=== PATIENT | male | born 1955 | race Caucasian/White ===

== ENCOUNTER 2023-06-26 17:37 | Inpatient (IN) | payer MEDICARE, SELFPAY ==
[2023-06-26] VITALS (28 sets, daily range): BP systolic 99–138; BP diastolic 56–81; PULSE 78–99; RESP 15–26; TEMP 36.5–37.2; O2SAT 94–98
--- NOTE | 2023-06-26 17:30 | RT.EKG_ITS ---
APPROVED REPORT Exam: Resting ECG Reason for Exam: dizziness Patient Location: E HR:90 bpm ECG Measurements Heart Rate 90 AXIS MN 136 P 32 QRSd 96 QRS 17 QT 381 T 31 QTc 468 Conclusion Sinus rhythm...normal P axis, V-rate 60- 99 Normal [place] Normal Electrocardiogram
--- NOTE | 2023-06-26 17:36 | W.ED.GENAD ---
Discharge Plan Disposition Patient Disposition: Admit to [facility] Condition: Good Discharge Details Clinical Impression: Left arm weakness, Left arm numbness Primary Care Provider: None,None ED Provider: Anthony Marcano General Mode of arrival: EMS. Date/Time Provider Initiated Documentation: 06/26/23 17:44. Limitations to Documentation: no limitations. Information obtained by: patient. HPI Narrative: Patient brought into ED by ambulance after a slip and fall. Patient reports being dizzy on and off this week. He is also reporting left upper extremity numbness and weakness couple of times this week which is new. 1 episode lasted a couple of hours. He did not seek treatment at that time. When he fell this afternoon he did strike the back of his head. Questionable LOC but definitely dazed and confused post fall. Denies any no neck pain. He has chronic neck and back pain. Denies any chest pain or shortness of breath. Has a chronic cough. Denies any abdominal pain or GI symptoms. Review of Systems Narrative: Per HPI Exam Narrative Exam Narrative: Const: WDWN elderly male in NAD. HEENT: NC/AT. Normal facial exam. Neck: Supple. Trachea midline. No cervical spine tenderness. Lungs: Normal respiratory effort. Lungs are clear. Cor: RRR without murmur/gallop. Good radial pulses. GI: Soft. NT/ND. Back: No spine tenderness. Neuro: A+O x 3. Normal speech, mentation. Cranial nerves II - XII grossly intact. No gross motor or sensory deficit. Ext: No C/C/E. Medical Decision Making Patient presenting to ED with complaint of slip and fall, striking his head with questionable LOC. However, patient reporting 2 episodes of left upper extremity numbness and weakness that has occurred this week. Has never had this previously. Denied any lower extremity symptoms. Denies any chest pain or shortness of breath. Cervical spine is cleared clinically status post fall this afternoon. He will need CT head but given his episodes of unilateral neurologic symptoms will obtain CTA of head and neck, EKG, laboratory studies. Patient's EKG is sinus rhythm with no acute ST changes, essentially normal. Laboratory studies unremarkable. Mild anemia on CBC, mildly elevated BUN but normal creatinine. CT head is negative for bleed or fracture. CTA of head and neck negative for LVO or significant stenosis. Given the patient's history of hypertension with 2 episodes of left upper extremity weakness and numbness I did recommend admission for MRI and ECHO which patient is agreeable to. He is given 324 of aspirin. Discussed with hospitalist. Lab Data Lab results reviewed: Yes I reviewed the patient's lab results. ECG Data Attestation: I personally reviewed and interpreted this ECG (s) as follows: Prior ECG tracings: not available for review Interpretation: See EKG Quality:SDOH Health Related Social Needs: No Data to Display PFSH All Active Problems (Updated 06/26/23 @ 21:21 by Anthony Marcano MD) Left arm numbness (Acute) Left arm weakness (Acute) Medical History Degenerative joint disease of spine Asthma HTN (hypertension) Social History Smoking risk assessment performed?: No Alcohol Intake: current Alcohol Intake frequency: a few times a week Alcohol type: beer Substance use type: does not use Housing: homeless
--- NOTE | 2023-06-26 17:57 | DI.CT_ITS ---
Exam(s) CT BRAIN NECK CTA EXAM: CT BRAIN NECK CTA CLINICAL HISTORY: LUE numbness/weakness x2 this week. TECHNIQUE: Imaging Protocol: Axial CT angiography was performed with multi-slice acquisition and mu lti-planar and/or 3D reconstructions. CONTRAST MATERIAL: Intravenous: Omnipaque 350 Contrast volume:structured data in ml COMPARISON: No exams were available for comparison FINDINGS: CTA Neck W: Aortic arch anatomy: The aortic arch anatomy is conventional and there is no significant stenosis at the origin of the great vessels off of the aortic arch. No intimal flap evident. Anterior circulation: Both common carotid arteries ascend with normal luminal diameters. At the level the carotid bulbs and proximal internal carotid arteries there is minimal plaque without hemodynamically significant stenosis evident. Posterior circulation: Both vertebral arteries originate in conventional fashion off of the subclavian arteries and there is no obvious stenosis at the origin of the vertebral arteries. Both vertebral arteries exhibit normal luminal diameters within the foramen transversarium. Both vertebral arteries contribute to the formation of the basilar artery at the skull base. CTA Brain W: Anterior circulation: Both internal carotid arteries are patent in the skull base-carotid canals as well as within the cave rnous sinuses. The supraclinoid aspects of the ICAs are patent. Both A1 segments are patent as are the anterior cer ebral arteries and there is no evidence of aneurysm at the level of the anterior communicating artery . Both middle cerebral arteries are patent with no evidence of significant stenosis nor intraluminal th rombus. There also no aneurysms of these vessels. Posterior circulation: The basilar artery ascends in the midline. Distally it gives off patent bilateral superior cerebella r arteries. Above this level the basilar artery terminates as patent bilateral posterior cerebral arteries. There is a posterior communicating artery on the right side of the [id number] feeding the right posterior cerebral artery. There is no evidence of aneurysm at the tip of the basilar artery nor elsewhere in the gossfy-[id number]-Diwr is. On the axial images there is a subtle suggestion of a possible aneurysm at the origin of the lef t middle cerebral artery. This, however, is not evident on the sagittal and coronal reconstructed im ages. CT BRAIN: There is no evidence of intracranial hemorrhage, mass effect, or shift of midline structures. There are no extra-axial fluid collections. Ventricles are not enlarged or shifted. There are no ring enh ancing lesions in the brain and no abnormal meningeal enhancement. IMPRESSION: 1. Patent carotid arteries in the neck. No hemodynamically significant stenosis. 2. Patent vertebral arteries. 3. Patent intracranial arteries. 4. No acute intracranial findings. No ring enhancing lesions in the brain and no abnormal meningeal enhancement. RADIATION DOSE DELIVERED: Total DLP DATA REPOSITORY: All CT scans at this facility are submitted to the National Radiology Data Registry (NRDR) Dose Index Registry (DIR) with the [employer] (ACR). RADIATION OPTIMIZATION: All CT scans at this facility use at least one of these dose optimization te chniques: automated exposure control; mA and/or kV adjustment per patient size (includes targeted exa ms where dose is matched to clinical indication); or iterative reconstruction.
[2023-06-26 18:17] LABS: Abs Immature Grans 0.01 10^3/uL (0.0-0.06); Absolute Basophil Count 0.08 10^3/uL (0.0-0.2); Absolute Eosinophil Count 0.03 10^3/uL (0.0-0.7); Absolute Lymphocyte Count 1.56 10^3/uL (1.2-3.4); Absolute Neutrophil Count 3.47 10^3/uL (1.2-6.7); Basophils % 1.4; Eosinophils % 0.5; HCT 38.6 % (40.0-50.0); HGB 12.6 g/dL (13.5-17.5); Immature Grans % 0.2; Lymphocytes % 27.6; MCHC 32.6 % (32.0-36.0); MCV 92 fL (80-95); MPV 8.9 fL (8.0-11.0); Monocytes % 8.8; Neutrophils % 61.5; Platelet Count 264 10^3/uL (130-400); RDW 13.4 % (11.8-14.1); RDW-SD 45.3 fL; WBC 5.65 10^3/uL (4.4-10.8)
[2023-06-26] MEDS: Normal Saline 1,000 ML 1000 ML IV (18:17)
[2023-06-26 18:31] LABS: ALT 23 U/L (16-63); AST 21 U/L (15-37); Albumin 3.1 g/dL (3.4-5.0); Alkaline Phosphatase 57 U/L (46-116); BUN 25 mg/dL (7-18); Bilirubin, Total 0.2 mg/dL (0.2-1.0); Calcium 8.2 mg/dL (8.5-10.1); Chloride 108 mmol/L (98-107); Estimated GFR 81.47 (mL/min/1.73m2); Glucose 87 mg/dL (74-106); Magnesium 2.2 mg/dL (1.8-2.4); Potassium 3.8 mmol/L (3.5-5.1); Sodium 143 mmol/L (136-145); Total Protein 6.7 g/dL (6.4-8.2)
[2023-06-26] MEDS: Omnipaque 350 MG/ML 100 ML BTL IJ (19:10)
[2023-06-26] MEDS: Normal Saline - Diluent 50 ML VIAL IJ (19:12)
--- NOTE | 2023-06-26 21:05 | DI.VRAD_ITS ---
PROCEDURE INFORMATION: Exam: CT Head Without Contrast Exam date and time: 06/26/2023 7:16 PM Age: 67 years old Clinical indication: Lue numbness/weakness x2 this week TECHNIQUE: Imaging protocol: Computed tomography of the head without contrast. COMPARISON: No relevant prior studies available. FINDINGS: Brain: There is no acute intracranial hemorrhage, mass effect or midline shift. There is no large acute territorial cerebral infarct. Bilateral basal ganglia calcifications are noted. Cerebral ventricles: No ventriculomegaly. Paranasal sinuses: Visualized sinuses are unremarkable. No fluid levels. Mastoid air cells: Visualized mastoid air cells are well aerated. Bones/joints: Unremarkable. No acute fracture. Soft tissues: Unremarkable. IMPRESSION: No acute intracranial hemorrhage, mass effect or midline shift. PROCEDURE INFORMATION: Exam: CTA Head With Contrast, Arteriography Exam date and time: 06/26/2023 7:16 PM Age: 67 years old Clinical indication: Other: Lue numbness/weakness x2 this week TECHNIQUE: Imaging protocol: Computed tomographic angiography of the head with contrast. Exam focused on the arteries. 3D rendering (Not supervised by radiologist): MIP and/or 3D reconstructed images were created by the technologist. Contrast material: 350; Contrast volume: 85 ml; Contrast route: INTRAVENOUS (IV); COMPARISON: No relevant prior studies available. FINDINGS: ANTERIOR CIRCULATION: Right internal carotid artery: Intracranial segment is patent with no significant stenosis. No aneurysm. Right middle cerebral artery: No occlusion or significant stenosis. No aneurysm. Right anterior cerebral artery: No occlusion or significant stenosis. No aneurysm. Left internal carotid artery: Intracranial segment is patent with no significant stenosis. No aneurysm. Left middle cerebral artery: No occlusion or significant stenosis. No aneurysm. Left anterior cerebral artery: No occlusion or significant stenosis. No aneurysm. POSTERIOR CIRCULATION: Right vertebral artery: No occlusion or significant stenosis. No aneurysm. Left vertebral artery: No occlusion or significant stenosis. No aneurysm. Basilar artery: No occlusion or significant stenosis. No aneurysm. Right posterior cerebral artery: No occlusion or significant stenosis. No aneurysm. Left posterior cerebral artery: No occlusion or significant stenosis. No aneurysm. Brain: No definite mass, mass effect, or midline shift. Cerebral ventricles: No ventriculomegaly. Bones/joints: Unremarkable. No acute fracture. Soft tissues: Unremarkable. IMPRESSION: No large vessel stenosis or occlusion. PROCEDURE INFORMATION: Exam: CTA Neck With Contrast Exam date and time: 06/26/2023 7:16 PM Age: 67 years old Clinical indication: Lue numbness/weakness x2 this week TECHNIQUE: Imaging protocol: Computed tomographic angiography of the neck with contrast. Exam focused on the cervical segments of the vasculature. 3D rendering (Not supervised by radiologist): MIP and/or 3D reconstructed images were created by the technologist. Contrast material: 350; Contrast volume: 85 ml; Contrast route: INTRAVENOUS (IV); COMPARISON: No relevant prior studies available. FINDINGS: Right common carotid artery: No stenosis. No dissection or occlusion. Right internal carotid artery: No stenosis of the extracranial segment. No dissection or occlusion. Right external carotid artery: No occlusion or stenosis of the origin. Left common carotid artery: No stenosis. No dissection or occlusion. Left internal carotid artery: No stenosis of the extracranial segment. No dissection or occlusion. Left external carotid artery: No occlusion or stenosis of the origin. Right vertebral artery: No stenosis. No dissection or occlusion. Left vertebral artery: No stenosis. No dissection or occlusion. Soft tissues: Normal. No significant soft tissue swelling. Bones/joints: No acute fracture. IMPRESSION: No stenosis or occlusion. REFERENCES: NASCET CRITERIA. The degree of stenosis in the cervical segment of the internal carotid artery is based on NASCET criteria. Normal is no stenosis. Mild is less than 50% stenosis. Moderate is 50-69% stenosis. Severe is 70% to 99% stenosis. Total occlusion is no detectable patent lumen. Dictated and Authenticated by: Aundrea Gutierrez MD. Ordering:LOUISE Cruz MD
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
[2023-06-26] MEDS: Aspirin 81 MG CHEW 324 MG CH (22:09)
[2023-06-26 23:51] LABS: TSH (W/Ref FT4) 1.17 uIU/mL (0.36-3.74)
[2023-06-27] VITALS (8 sets, daily range): BP systolic 137–172; BP diastolic 79–96; PULSE 74–87; RESP 14–18; TEMP 36.3–37; O2SAT 95–98
[2023-06-27 06:41] LABS: HCT 40.2 % (40.0-50.0); HGB 13.6 g/dL (13.5-17.5); MCH 30.7 pg (27.0-33.0); MCHC 33.8 % (32.0-36.0); MCV 91 fL (80-95); MPV 9.1 fL (8.0-11.0); Platelet Count 257 10^3/uL (130-400); RBC 4.43 10^6/uL (4.36-5.78); RDW 13.3 % (11.8-14.1); RDW-SD 44.4 fL; WBC 7.22 10^3/uL (4.4-10.8)
[2023-06-27 07:08] LABS: ALT 18 U/L (16-63); AST 20 U/L (15-37); Albumin 3.2 g/dL (3.4-5.0); Alkaline Phosphatase 56 U/L (46-116); Anion Gap 10.4 mmol/L (3-11); BUN 19 mg/dL (7-18); Bilirubin, Total 0.4 mg/dL (0.2-1.0); CO2 22.6 mmol/L (21.0-32.0); CREATININE 0.7 mg/dL (0.70-1.30); Calcium 8.5 mg/dL (8.5-10.1); Calculated LDL 79 mg/dL (<100); Chloride 107 mmol/L (98-107); Cholesterol 165 mg/dL (<200); Estimated GFR 99.74 (mL/min/1.73m2); Glucose 83 mg/dL (74-106); HDL Cholesterol 71 mg/dL (40-60); Potassium 4.4 mmol/L (3.5-5.1); Sodium 140 mmol/L (136-145); Total Protein 6.7 g/dL (6.4-8.2); Triglyceride 76 mg/dL (<150)
--- NOTE | 2023-06-27 08:00 | DI.MRI_ITS ---
Exam(s) MR BRAIN WO EXAM: MR BRAIN WO CLINICAL HISTORY: TIA with left upper extremity weakness intermitten TECHNIQUE: Multiplanar multisequence MRI of the brain was performed. COMPARISON: CT CT BRAIN NECK CTA from 06/26/2023 FINDINGS: CEREBRAL PARENCHYMA: There is no evidence of intracranial hemorrhage, mass effect, or shift of midline structures. There are no extra-axial fluid collections. Ventricles are not enlarged or shifted. There is no significant focal signal abnormality in the cerebellar hemispheres nor within the ximena, m idbrain, and thalami. There are multiple small nonspecific foci of FLAIR bright signal abnormality in the bilateral cortica l white matter, not associated with hemorrhage, surrounding edema, nor restricted diffusion to sugges t acute ischemic event. No evidence of microhemorrhages on susceptibility weighted imaging PITUITARY GLAND: No mass nor parasellar abnormality. No obvious abnormality in the cavernous sinuses. FLOW VOIDS: The expected flow void are noted. No evidence of obvious aneurysm nor obvious vascular ma lformation. Incidentally noted is a right posterior communicating artery feeding the right posterior cerebral artery. The left posterior cerebral artery originates in conventional fashion off of the ti p of the basilar artery. PARANASAL SINUSES: The visualized paranasal sinuses appear unremarkable. No obvious finding ORBITS: No obvious findings. IMPRESSION: No significant acute intracranial findings on this noninfused MRI scan of the brain. Chronic small-vessel white matter ischemic changes. No evidence of restricted diffusion to suggest a cute ischemic event. DATA REPOSITORY:
--- NOTE | 2023-06-27 09:38 | INITIAL_ITS ---
Date of service: 06/27/23 Care Management Initial Assmt Initial Assessment REASON FOR HOSPITALIZATION:: TIA HTN Fall Homelessness PREVIOUS FUNCTIONAL STATUS/SOCIAL/FAMILY SUPPORTS:: Rebel is from [place], currently traveling. He has a [place] mailing address. He says he has an ex in [place] he can not stay with and an ex girlfriend in [place] who has medical issues so can not stay there either. He says he has some siblings, however, does not stay in contact with them. He says he is pretty lonely and shed some tears in saying this. CURRENT FUNCTIONAL STATUS:: Rebel was sitting up in a chair when meeting with CM engaging in conversation. Rebel explained he has been homeless since 2018 staying in various places between [place], [place], [place]. Rebel described having a sled he has a lot of his belongings in and [place] but would be willing to go to the local motel or prison here in [facility]. He said he has used numerous motels and shelters over the last few years since leaving [place]. 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 CM provided [employer] housing line number for housing services when ready for discharge. He is not interested in state food services. CM completed IMM form with Pt. ADVANCE DIRECTIVES:: GALILEO Yanes Has patient been provided with info about the portal/API?: Yes Did the patient sign up for the portal?: No CODE STATUS:: Full Code INSURANCE COVERAGE / FINANCIAL ISSUES:: [employer] Medicare Replacement PRIMARY CARE PHYSICIAN:: Will offer T-Doc f/u PATIENT/FAMILY EDUCATION NEEDS:: Review discharge instructions and limitations, discussion of self care needs including Ask Me Three ANTICIPATED BARRIERS TO DISCHARGE:: Homelessness TRANSPORTATION:: Via private vehicle PLAN:: Rebel will transport home once medically cleared via private vehicle. CM will continue to follow. PFSH All Active Problems (Updated 06/27/23 @ 15:33 by Maya Burnett APRN) Discharge planning issues (Acute) On deep vein thrombosis (DVT) prophylaxis (Acute) Fall (Acute) TIA (transient ischemic attack) (Acute) Left arm numbness (Acute) Left arm weakness (Acute) Medical History Degenerative joint disease of spine Asthma HTN (hypertension) Social History Smoking risk assessment performed?: No Alcohol Intake: current Alcohol Intake frequency: a few times a week Alcohol type: beer Substance use type: does not use Housing: homeless SDOH(Care Management) Screening Will the Patient Participate in the Screening?: Yes Do you worry about having a steady place to live?: yes Problems where you live: pests such as bugs, ants or mice, mold, lack of heat, oven or stove not working, water leaks, unsafe steven/stairs, inadequate lighting and other In the past 12 months, have you had to go without electric, gas, oil or water in your home?: yes Have you or anyone in your house had to go without enough food to eat?: yes Has lack of transportation kept you from medical appointments or from doing things needed for daily living?: yes Has anyone in your support network made you feel unsafe for any reason?: yes Social Determinants of Health Comments(SDOH Details): homeless lives in [facility] Health Related Social Needs Health related social needs: inadequate housing(Z59.1), housing instability, housed, with risk of homelessness(Z59.811), food insecurity(Z59.41), transportation insecurity(Z59.82), material hardship(utilities)(Z59.87) and problem related to primary support group(Z63.9)
[2023-06-27] MEDS: Aspirin 81 MG CHEW PO (09:49)
[2023-06-27] MEDS: Normal Saline Flush 10 ML SYR IVP ×2 (09:50→19:58)
--- NOTE | 2023-06-27 10:30 | DI.US_ITS ---
APPROVED REPORT EXAM: Comprehensive 2D, Doppler, and color-flow Echocardiogram Patient Location: In-Patient Room/Bed: [address] Machine Operator: Marek Cruz RDCS (AE) Indications: TIA with intermittent left arm weakness Echo Enhancing Agent Indication: Rule out Shunt Agent(s) / Amount(s) Used: Agitated Saline 30.0 cc Comments: Contrast study was performed with 3 IV injections of 10ccs of agitated normal saline, at [facility], with cough and post valsalva maneuver. Negative contrast study for shunt flow. Conclusion Normal left ventricular wall thickness and chamber size. Ejection fraction is 50%. There are no seg mental wall motion abnormalities Normal right ventricular size and function Left atrium is mildly enlarged. Right atrial size is normal No intracardiac shunting is identified with injection of agitated saline There are no structural or hemodynamically significant valvular abnormalities Wall motion Left Ventricle The left ventricle is normal size. Left ventricular systolic function is borderline. There is normal left ventricular wall thickness. No segmental wall motion abnormalities There is no ventricular septa l defect visualized. LVEF is 50%. Right Ventricle The right ventricle is normal size. The right ventricular systolic function is normal. Atria Left atrium is mildly dilated. The right atrium size is normal. The interatrial septum is intact with no evidence for an atrial septal defect. Saline bubble contrast intravenous injection does not demon strate PFO. Aortic Valve The aortic valve is normal in structure. Aortic valve is trileaflet. There is no aortic valvular sten osis. No aortic regurgitation is present. Mitral Valve The mitral valve is normal in structure. No evidence of mitral valve stenosis. Trace mitral regurgita tion. Tricuspid Valve The tricuspid valve is normal in structure. There is no tricuspid valve stenosis. Trace tricuspid reg urgitation. Unable to assess PA pressure. Pulmonic Valve The pulmonary valve is normal in structure. There is no pulmonic valvular stenosis. There is no pulmo dominique valvular regurgitation. Great Vessels The aortic root is normal in size. The ascending aorta is normal in size. Aortic arch is normal in ca liber. IVC is normal in size and collapses >50% with inspiration. Pericardium There is no pericardial effusion. 2D Dimensions IVSD d PLAX 0.72 cm M: 0.6-1.2 Ao Root d 2.71 cm M: 3.1 - 3.7 LVPW d PLAX 0.72 cm M: 0.6 - 1.2 Ao Asc Diam d 3.10 cm M: 2.6 - 3.4 LVID d PLAX 5.54 cm M: 4.2 - 5.8 LVDs 4.22 cm M: 2.5 - 4.0 LV EF Teichholz 47.0 % FS 23.82 % LV EDV (Teich) 149.8 mL LV ESV (Teich) 79.5 mL Stroke Vol Index (Teich) 41.90 M-Mode TAPSE 2.52 cm (M/F) >1.7 Auto EF LV EDV A4C 136.1 mL LV EDV A2C 126.8 mL LV EDV BP 133.4 mL LV ESV A4C 75.3 mL LV ESV A2C 67.2 mL LV ESV BP 71.1 mL LVEF(%) A4C 44.7 % LVEF(%) A2C 47.0 % LVEF(%) BP 46.7 % LV SV A4C 60.8 ml LV SV A2C 59.5 ml LV SV BP 62.3 ml LV CO A4C 4.6 L/min LV CO A2C 4.8 L/min LV CO BP 4.7 L/min HR A4C 75.95 BPM HR A2C 80.18 BPM LV EDV Index (BP) LA Volume LA Length A4C 4.6 cm LA Length A2C 3.7 cm LA Area A4C s 14.06 cm2 LA Area A2C s 13.22 cm2 LA Vol A4C A-L 36.65 mL LA Vol A2C A-L 40.49 mL LA Vol Biplane A-L 43.0 mL LA Vol/BSA A4C A-L LA Vol/BSA A2C A-L LA Vol/BSA BP A-L 25.6 mL/m2 LA Vol A4C MOD 34.9 mL LA Vol A2C MOD 37.8 mL LA Vol BP MOD 39.7 mL RA Volume RA Area A4C 12.1 cm2 RA ESV A4C (A-L) 27.2mL RA Vol/BSA A4C A-L RA Length A4C 4.6 cm RA ESV A4C (MOD) 25.2mL LV Diastology MV E' medial 0.067 (>0.07 m/s) MV E Vmax 0.57 (0.4-1.3 m/s) MV E/E' MED 8.48 (<14) MV A Vmax 0.75 (0.4-1.3 m/s) MV E' lateral 0.046 (>0.1 m/s) E/A Ratio 0.8 MV E/E' LAT 12.32 (<14) MV E' Average 0.056 m/s MV E/E'(average) 10.05 Aortic Valve AoV Vmax 0.84 m/s LVOT Vmax 0.65 m/s AoV Peak Grad 2.8 mmHg LVOT Peak Grad 1.7 mmHg AoV Area (Vmax) 2.13 cm2 LVOT VTI 0.139 m AoV VTI 0.180 m LVOT Mean Grad 0.9 mmHg AoV Mean Frederick. 0.62 m/s LVOT SV 37.84 mL AoV Mean Grad 1.8 mmHg LVOT Diam s 1.85 cm AoV Area (VTI) 2.10 cm2 Velocity Ratio 0.77 Mitral Valve MV DT 211 (160-240 msec) Pulmonary Valve PV Vmax 0.86 (0.5-1.5 m/s) RVOT Vmax 0.47 m/s PV Peak Grad 3.0 mmHg RVOT Peak Gr. 0.9 mmHg PV Mean Frederick 0.58 m/s RVOT VTI 0.092 m PV Mean Grad 1.5 mmHg RVOT Mean Gr. 0.5 mmHg
[2023-06-27] MEDS: Hydrocortisone 1% CR 30 GM TUBE TP ×3 (11:30→19:58)
--- NOTE | 2023-06-27 14:51 | PHA.REVIEW2 ---
Pharmacy Admission Review Admission Clinical Review Admission Pharmacy Review: Fall (Acute) TIA (transient ischemic attack) (Acute) PCN Allergy (Unknown, Uncoded 06/26/23 22:20) Other (See Comment) Resuscitation Status Full Code Height 5 ft 6 in Weight 68.1 kg Pharmacy Admission Review Renal Dosing Renal Dosing: BUN 19 mg/dL (7-18) H 06/27/23 06:30 Creatinine 0.7 mg/dL (0.70-1.30) 06/27/23 06:30 Medications needing adjustments: Reviewed (CrCl 67.1 mL/min) Anticoagulation Anticoagulation: Hgb 13.6 g/dL (13.5-17.5) 06/27/23 06:30 Hct 40.2 % (40.0-50.0) 06/27/23 06:30 Plt Count 257 10^3/uL (130-400) 06/27/23 06:30 Creatinine 0.7 mg/dL (0.70-1.30) 06/27/23 06:30 DVT Prophylaxis: Reviewed (None at this time, possibly due to recent fall. Provider put in order that that medical prophylaxis is contraindicated) Relevant Labs Relevant Labs: Sodium 140 mmol/L (136-145) 06/27/23 06:30 Potassium 4.4 mmol/L (3.5-5.1) 06/27/23 06:30 Chloride 107 mmol/L (98-107) 06/27/23 06:30 Magnesium 2.0 mg/dL (1.8-2.4) 06/27/23 06:30 Electrolytes, C-Reactive P, ESR: Reviewed (BUN decreased from 25 to 19, Hgb increased from 12.6 to 13.6) Cardiac Review Cardiac Review: Blood Pressure 172/88 1123 Blood Pressure 170/96 0729 Blood Pressure 144/80 0421 BP, HR, EF%: Reviewed (BP 172/88 and HR WNL) QTc Review QTc: Reviewed (468 from 06/26/23) IV to PO Switch IV Medications: Reviewed Home Meds Home Med List reviewed: Reviewed Relevent Home Meds Not ordered & why?: Ibuprofen (PRN) Current Meds Current Medication Order Review: Reviewed
--- NOTE | 2023-06-27 14:59 | PGE_ITS ---
Date of Service Date of service: 06/27/23 Time of Service: 13:00 Assessment and Plan Assessment and plan (1) TIA (transient ischemic attack): Start date: 06/26/23 Status: Acute Assessment and plan: -TIA : resolved -Permissive hypertension: SBP 160, lisinopril for SBP > 150 ( 178 now) -On lipitor -On ASA 81 mg daily -Echo with bubble: LVEF 50%, no intra-cardiac shunting -Head and Neck CTA: 1.Patent carotid arteries in the neck. No hemodynamically significant stenosis. 2. Patent vertebral arteries. 3. Patent intracranial arteries. 4. No acute intracranial findings. No ring enhancing lesions in the brain and no abnormal meningeal enhancement. -Provide education: BFAST acronym (2) Fall: Start date: 06/26/23 Status: Acute Assessment and plan: Considered PT for fall safety but patient is ambulating independently in halls with steady and equal gait without assistive device On telemetry: NSR Qualifiers: Encounter type: initial encounter Qualified Code(s): W19.XXXA - Unspecified fall, initial encounter (3) HTN (hypertension): Assessment and plan: Permissive hypertension for SBP 160 then to normal w/i 24-48 hours: lisinopril with parameters ordered SBP 177-178 Qualifiers: Hypertension type: primary hypertension Qualified Code(s): I10 - E ssential (primary) hypertension (4) On deep vein thrombosis (DVT) prophylaxis: Status: Acute Assessment and plan: Patient with TIA on IPC, no restricted mobility thus will no start lovenox on this patient -SCD's (5) Discharge planning issues: Status: Acute Assessment and plan: Homelessness; -Conferring with CM for disposition Subjective Subjective Patient reports: no new complaints, feels better, tolerating liquids well, tolerating a regular diet, voiding w/o difficulty, flatus and bowel movement; denies still having pain, diarrhea, blood in stool, nausea, vomiting, shortness of breath or fever Exam Narrative Exam Narrative: Constitutional The patient is ambulatory alternating with sitting and remains comfortable and cooperative during the interview. The patient is disheveled without acute distress and but appears frail and older than stated age. HENMT: Facial structures with normal appearance Eyes: Well aligned, intact ROM Neck: Normal ROM, no meningeal signs Neuro:alert and oriented to self, person, place time and situation. No neurological focal deficit, PERRLA in ambient light Resp: Normal respiratory pattern, speaks in full sentences with rapid flow , unlabored breathing, clear lung bilaterally Cardio: regular rhythm, S1, S2, no murmur, capillary refill<3 sec., bilateral radial and dorsalis pedis pulses are positive, palpable GI: Abdomen is not distended, soft and non tender, bowel sounds are present : Negative Costovertebral angle tenderness Back/spine/Pelvis: No back tenderness, normal alignment Integumentary: Diffused folliculitis-type of lesion to torso and back Extremities: strength 5/5 to bilateral lower and upper extremities Psych: RASS 0, congruent to elated mood, tangential thought process, and normal to elated affect. Neuro Cranial Nerves: CN's II-XI intact bilaterally, sense of smell intact, PERRL, accommodation normal, EOM intact bilaterally, no nystagmus, facial strength normal, tongue midline, gag reflex normal, hearing normal, unable to rotate head bilaterally (past cervical trauma ), able to elevate shoulders bilaterally and symmetric palate elevation Cognition: normal cognition Gait: normal gait Psych Speech and Movement: pressured speech Mood: expansive Affect: elated Attitude: cooperative Thought Process: loose association and tangential Thought Content: other (Unable to maintain a train of thought ) Insight: limited Judgment: limited Objective Last Vital Signs Temp 36.4 C L 06/27/23 11:23 Pulse 86 06/27/23 11:23 Resp 16 06/27/23 11:23 BP 172/88 H 06/27/23 11:23 Pulse Ox 98 06/27/23 11:23 Laboratory Results - last 24 hr 06/26/23 06/27/23 06/27/23 18:12 05:35 06:30 WBC 5.65 7.22 RBC 4.20 L 4.43 Hgb 12.6 L 13.6 Hct 38.6 L 40.2 MCV 92 91 MCH 30.0 30.7 MCHC 32.6 33.8 RDW 13.4 13.3 Plt Count 264 257 MPV 8.9 9.1 Immature Gran % 0.2 Neutrophils % 61.5 Lymphocytes % 27.6 Monocytes % 8.8 Eosinophils % 0.5 Basophils % 1.4 Nucleated RBC % 0.0 Absolute Neutrophils 3.47 Absolute Lymphocytes 1.56 Absolute Monocytes 0.50 Absolute Eosinophils 0.03 Absolute Basophils 0.08 Sodium 143 Cancelled 140 Potassium 3.8 Cancelled 4.4 Chloride 108 H Cancelled 107 Carbon Dioxide 24.0 Cancelled 22.6 Anion Gap 11.0 Cancelled 10.4 BUN 25 H Cancelled 19 H Creatinine 1.0 Cancelled 0.7 Est GFR (CKD-EPI 2020) 81.47 Cancelled 99.74 Glucose 87 Cancelled 83 Calcium 8.2 L Cancelled 8.5 Magnesium 2.2 Cancelled 2.0 Total Bilirubin 0.2 Cancelled 0.4 AST 21 Cancelled 20 ALT 23 Cancelled 18 Alkaline Phosphatase 57 Cancelled 56 Total Protein 6.7 Cancelled 6.7 Albumin 3.1 L Cancelled 3.2 L Triglycerides 76 Total Cholesterol 165 LDL Cholesterol, Calc 79 HDL Cholesterol 71 TSH 1.17 Time Spent with Patient Time Spent with Patient: >50 minutes Time was spent: preparing to see the patient(eg.review tests), obtaining and/or reviewing separately otained hiistory, ordering medications,tests, procedures, referring, communicating with other health child care assistant, indepentently interpreting results, counseling the patient and care coordination
[2023-06-27 15:47] LABS: Lab Add On Test DONE
[2023-06-27] MEDS: Lisinopril 2.5 MG TAB PO (16:12)
--- NOTE | 2023-06-27 16:15 | CHAPLAIN ---
Rebel was up in the chair when I visited. He had just finished speaking with the Electronic Security Specialist. Rebel spoke very fast and covered a lot of theological and jainism topics. He told me about attending a prayer group in [facility] and an [employer] orthodoxy in [place], [place]. He quoted the Bible in Latin and Chinese, and had knowledge of both translations. Rebel said he identifies himself as Latter-Day and Methodist. He is enthusiastic about discussing interpretations of the Bible, but mostly lectures on what he knows. He quotes many different theologians and jainism writers with seemingly accrurate knowledge. He became tearful when we said a prayer together. He did not share any personal information. From Care Management notes and ED notes, it appears he is without housing currently. He told me he may have had a stroke and he believes he only has a couple more years to live. 

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
[2023-06-28 00:16] VITALS: PULSE 83
[2023-06-28 03:22] VITALS: BP 154/97; PULSE 65; RESP 16; TEMP 36.6; O2SAT 96
[2023-06-28 07:19] LABS: Abs Immature Grans 0.03 10^3/uL (0.0-0.06); Absolute Basophil Count 0.08 10^3/uL (0.0-0.2); Absolute Eosinophil Count 0.04 10^3/uL (0.0-0.7); Absolute Lymphocyte Count 1.81 10^3/uL (1.2-3.4); Absolute Monocyte Count 0.57 10^3/uL (0.1-0.8); Absolute Neutrophil Count 5.05 10^3/uL (1.2-6.7); Basophils % 1.1; Eosinophils % 0.5; HCT 46.4 % (40.0-50.0); HGB 15.8 g/dL (13.5-17.5); Immature Grans % 0.4; Lymphocytes % 23.9; MCH 30.4 pg (27.0-33.0); MCHC 34.1 % (32.0-36.0); MCV 89 fL (80-95); MPV 9.4 fL (8.0-11.0); Monocytes % 7.5; Neutrophils % 66.6; Platelet Count 322 10^3/uL (130-400); RDW 12.9 % (11.8-14.1); RDW-SD 42.3 fL; WBC 7.58 10^3/uL (4.4-10.8)
[2023-06-28 07:22] VITALS: BP 140/84; PULSE 97; RESP 14; TEMP 36; O2SAT 99
[2023-06-28 07:45] LABS: Anion Gap 11.5 mmol/L (3-11); BUN 12 mg/dL (7-18); CO2 25.5 mmol/L (21.0-32.0); CREATININE 0.8 mg/dL (0.70-1.30); Calcium 9.3 mg/dL (8.5-10.1); Chloride 101 mmol/L (98-107); Glucose 92 mg/dL (74-106); Potassium 4.1 mmol/L (3.5-5.1); Sodium 138 mmol/L (136-145)
--- NOTE | 2023-06-28 09:03 | PDOC.CMDIS ---
Date of service: 06/28/23 LACE Index Scoring Tool Questions: Length of Stay (in days): 2 Was the patient admitted via the E.D.?: Yes E.D. Visits: 0 Answers: Total Score: 5 Risk of Readmission: Low Risk Care Management Discharge Plan Reason for Hospitalization: TIA HTN Fall Homelessness Discharge Plan: Rebel will return to the community via RCT coordinated from CM. He will follow up with [facility] PCP DR Carlson and plan for care as prescribed. CM activities assistant arranged transportation to [facility] in [place] after Rebel called [facility] and was placed in a [employer] room. CM coordinated food safety technician [facility]. Patient/Family Education Needs: Review discharge instructions and discuss Ask Me Three SDOH Health Related Social Needs: Health related social needs inadequate housing, risk of homeless, food insecurity, transpo insecurity, material hardship, personal safety Health related social needs: inadequate housing(Z59.1), housing instability, housed, with risk of homelessness(Z59.811), food insecurity(Z59.41), transportation insecurity(Z59.82), material hardship(utilities)(Z59.87) and problem related to primary support group(Z63.9)
[2023-06-28] MEDS: Lisinopril 2.5 MG TAB PO (09:34)
[2023-06-28] MEDS: Aspirin 81 MG CHEW PO (09:34)
[2023-06-28] MEDS: Normal Saline Flush 10 ML SYR IVP (09:35)
[2023-06-28] MEDS: Hydrocortisone 1% CR 30 GM TUBE TP (10:25)
== END 2023-06-28 13:50 | disposition home or self-care (01) | DRG 69 ==
LOC: ER 21:21 → MS 22:17
PROVIDERS: Nurse Practitioner Acute Care; Admitting Provider Family Medicine; Emergency Provider Emergency Medicine; Visit Provider Family Medicine
DX: G45.9 Transient cerebral ischemic attack, unspecified (principal); Z59.02 Unsheltered homelessness; I10 Essential (primary) hypertension; W19.XXXA Unspecified fall, initial encounter; Z79.899 Other long term (current) drug therapy; F90.9 Attention-deficit hyperactivity disorder, unspecified type
CPT/HCPCS: 00123; 36415; 70496; 70498; 80048; 80053; 80061; 85027; 93005; 93306; 96360; 99285; 70551; 83036; 83735; 84443; 85025; 93010; 99223; 99233; 99238; J3490